=== PATIENT | male | born 1925 | race Caucasian/White ===

== ENCOUNTER 2016-10-20 17:37 | Emergency (ER) | payer MEDICARE ==
[2016-10-20] MEDS ORDERED: NS 0.9% 1000 ML* 1,000 ML IV ONE (18:05)
--- NOTE | 2016-10-20 18:28 | RAD ---
INDICATION: Altered mental status COMPARISON: Multiple previous brain CTs, most recently dated July 24, 2016 TECHNIQUE: Contiguous axial sections of the brain were obtained from the skull base to the vertex without contrast. FINDINGS: The ventricles, cisterns and sulci exhibit central greater than peripheral involutional changes similar in appearance to the most recent CT of the brain. There is mild to moderate periventricular and subcortical white matter hypoattenuation also similar to the previous CT examination and most consistent with chronic microvascular disease. Otherwise the jones-white matter differentiation is adequately maintained and there is no sulcal effacement. No significant focal abnormality or mass effect is present. There is no evidence for intracranial hemorrhage. Calcified atherosclerosis of the vertebral arteries and petrous carotid arteries are noted. No significant focal osseous abnormality is present. The visualized portion of the paranasal sinuses and mastoid air cells appear clear. IMPRESSION: Involutional changes and evidence of chronic microvascular disease similar in appearance to the July 24, 2016 CT examination without evidence of acute intracranial abnormality.
[2016-10-20 18:56] LABS: Hematocrit 42 % (42-52); Hemoglobin 14.1 g/dl (14.0-18.0); Mean Corpuscular HGB Conc 33 g/dl (31-36); Mean Corpuscular Hemoglobin 27 pg (27-31); Mean Corpuscular Volume 83 fL (80-94); Mean Platelet Volume 8 um3 (7.4-10.4); Red Blood Count 5.13 10^6/ul (4.0-5.4); Red Cell Distribution Width 15 % (10.5-15); White Blood Count 8.1 10^3/ul (3.5-10.8)
[2016-10-20 19:09] LABS: Anion Gap 7 mmol/L (2-11); Blood Urea Nitrogen 20 mg/dL (6-24); CO2 Carbon Dioxide 28 mmol/L (22-32); Chloride 101 mmol/L (101-111); Glucose 109 mg/dL (70-100); Potassium 3.9 mmol/L (3.5-5.0); Sodium 136 mmol/L (133-145); Troponin I 0.02 ng/mL (<0.04)
[2016-10-20 19:10] LABS: ALT 14 U/L (7-52); AST 21 U/L (13-39); Alkaline Phosphatase 64 U/L (34-104); Calcium 9.1 mg/dL (8.6-10.3); Creatine Kinase 52 U/L (10-223); EGFR African American 90.5 (>60); EGFR Non-African American 70.4 (>60); Globulin 2.9 g/dL (2-4); Total Protein 6.9 g/dL (6.4-8.9)
[2016-10-20 19:15] LABS: Alcohol < 10 mg/dL (<10)
--- NOTE | 2016-10-20 19:55 | RAD ---
INDICATION: Altered mental status COMPARISON: Chest x-ray dated July 15, 2016 TECHNIQUE: Single AP portable view of the chest was obtained. FINDINGS: Image quality is compromised due to the relative inferiority of a portable chest x-ray. Unchanged iatrogenic findings include left upper chest cardiac pacemaker with 2 leads overlying the heart and sternotomy wires. The heart and mediastinum exhibit normal size and contour. Again seen is coarse calcification overlying the arch of the aorta. The lungs are grossly clear. There is no evidence of a large pleural effusion. Visualized bones are normal for the patient's age. IMPRESSION: No radiographic evidence for acute cardiopulmonary abnormality on this portable chest x-ray.
[2016-10-20 21:53] LABS: Urine Bilirubin Negative (Negative); Urine Glucose Negative (Negative); Urine Nitrite Negative (Negative)
--- NOTE | 2016-10-20 22:02 | ED ---
I, Oh,Soohyun, scribed for Edil Rodriguez MD on 10/20/16 at 1931 . Complex/Multi-Sys Presentation - HPI Summary HPI Summary: LEVEL 5 CAVEAT secondary to Dementia. Most of the HPI is obtained from a female family member present at bedside. This 89 y/o male presents to ED for increased general weakness since this morning. Family member present at bedside states that pt is mobile at his baseline, but this morning he was not able to hold himself up from the bed and appeared more disoriented than his usual self. Pt reports n/v this AM but denies any diarrhea. Temperature of 100.1 F is noted at time of triage. PMH includes CABG, afib, TIA x2, and right eye blindness. - History Of Current Complaint Time Seen by Provider: 10/20/16 17:56 Hx Obtained From: Family/Bread Wrapper, Medical Records Hx From Patient Unobtainable Due To: Dementia Onset/Duration: Sudden Onset, Still Present Timing: Constant Severity Currently: Moderate Severity Initially: Moderate Associated Signs And Symptoms: Positive: Weakness - general, Nausea, Vomiting - Allergies/Home Medications Allergies/Adverse Reactions: Allergies Allergy/AdvReac Type Severity Reaction Status Date / Time Amoxicillin Allergy Intermediate Rash Verified 06/18/16 16:10 Clindamycin Allergy Intermediate Hives Verified 06/18/16 16:10 Ramipril [From Altace] AdvReac Mild Coughing Verified 06/18/16 16:10 PMH/Surg Hx/FS Hx/Imm Hx Cardiovascular History: Reports: Hx Coronary Artery Disease - CABG X3 1993, Hx Hypertension, Hx Pacemaker/ICD, Other Cardiovascular Problems/Disorders - open heart Sx, AFIB, aortic valve replacement Respiratory History: Reports: Hx Chronic Bronchitis, Hx Sleep Apnea - HX OF, NOT CURRENTLY History: Reports: Hx Benign Prostatic Hyperplasia, Other Problems/ Disorders - prostate Cancer Sensory History: Reports: Hx Cataracts, Hx Contacts or Glasses - glasses, Hx Legally Blind - Rt eye blindness, Hx Hearing Problem Denies: Hx Hearing Aid Opthamlomology History: Reports: Hx Cataracts, Hx Contacts or Glasses - glasses , Hx Legally Blind - Rt eye blindness Neurological History: Reports: Hx Dementia, Hx Transient Ischemic Attacks (TIA) - possible past dx, Other Neuro Impairments/Disorders - vertigo - Cancer History Cancer Type, Location and Year: prostate no treatment - Surgical History Surgery Procedure, Year, and Place: 1961 - nasal septoplasty. pacemaker insertion 1997 [facility] [place]. CABG x3 1993. 01/20 [facility] [place] AORTIC VAL[place] Hx Anesthesia Reactions: No - Family History Known Family History: Positive: Cardiac Disease - CVA - Social History Alcohol Use: Daily Alcohol Amount: 1 beer Hx Substance Use: No Substance Use Type: Reports: None Hx Tobacco Use: Yes Smoking Status (MU): Former Smoker Type: Cigarettes Length of Time of Smoking/Using Tobacco: 30 yrs Have You Smoked in the Last Year: No Review of Systems - ROS Summary Review of Systems Summary: LEVEL 5 CAVEAT secondary to Dementia Positive: Fever - Temperature of 100.1 F Positive: Vomiting, Nausea. Negative: Diarrhea Positive: Weakness - general Negative: Anxious, Depressed All Other Systems Reviewed And Are Negative: No Physical Exam - Summary Physical Exam Summary: VITAL SIGNS: Reviewed. GENERAL: Patient is a well developed and nourished male who is lying comfortable in the stretcher. Patient is not in any acute respiratory distress. HEAD AND FACE: No signs of trauma. No ecchymosis, hematomas or skull depressions. No sinus tenderness. EYES: PERRLA, EOMI x 2, No injected conjunctiva, no nystagmus. EARS: Hearing grossly intact. Ear canals and tympanic membranes are within normal limits. MOUTH: Oropharynx within normal limits. NECK: Supple, trachea is midline, no adenopathy, no JVD, no carotid bruit, no c- spine tenderness, neck with full ROM. CHEST: Symmetric, no tenderness at palpation LUNGS: Clear to auscultation bilaterally. No wheezing or crackles. CVS: Regular rate and rhythm, S1 and S2 present, no murmurs or gallops appreciated. ABDOMEN: Soft, non-tender. No signs of distention. No rebound no guarding, and no masses palpated. Bowel sounds are normal. EXTREMITIES: FROM in all major joints, no edema, no cyanosis or clubbing. NEURO: Alert and oriented x 2. No acute neurological deficits. Speech is normal and follows commands. SKIN: Dry and warm Triage Information Reviewed: Yes Vital Signs On Initial Exam: Initial Vitals Temp Pulse Resp BP Pulse Ox 100.1 F 70 20 105/54 92 10/20/16 17:55 10/20/16 17:55 10/20/16 17:55 10/20/16 17:55 10/20/16 17:55 Vital Signs Reviewed: Yes Diagnostics - Vital Signs Vital Signs Temp Pulse Resp BP Pulse Ox 10/20/16 18:00 70 20 92 10/20/16 17:56 70 13 95 10/20/16 17:55 100.1 F 70 20 105/54 92 - Laboratory Lab Results: Lab Results 10/20/16 10/20/16 10/20/16 Range/Units 18:30 18:30 18:30 WBC 8.1 (3.5-10.8) 10^3/ul RBC 5.13 (4.0-5.4) 10^6/ul Hgb 14.1 (14.0-18.0) g/dl Hct 42 (42-52) % MCV 83 (80-94) fL MCH 27 (27-31) pg MCHC 33 (31-36) g/dl RDW 15 (10.5-15) % Plt Count 162 (150-450) 10^3/ul MPV 8 (7.4-10.4) um3 Neut % (Auto) 92.1 H (38-83) % Lymph % (Auto) 1.1 L (25-47) % [place] % (Auto) 6.6 (1-9) % Eos % (Auto) 0 (0-6) % Baso % (Auto) 0.2 (0-2) % Absolute Neuts (auto) 7.5 (1.5-7.7) 10^3/ul Absolute Lymphs (auto) 0.1 L (1.0-4.8) 10^3/ul Absolute Monos (auto) 0.5 (0-0.8) 10^3/ul Absolute Eos (auto) 0 (0-0.6) 10^3/ul Absolute Basos (auto) 0 (0-0.2) 10^3/ul Absolute Nucleated RBC 0 10^3/ul Nucleated RBC % 0 Sodium 136 (133-145) mmol/L Potassium 3.9 (3.5-5.0) mmol/L Chloride 101 (101-111) mmol/L Carbon Dioxide 28 (22-32) mmol/L Anion Gap 7 (2-11) mmol/L BUN 20 (6-24) mg/dL Creatinine 1.00 (0.67-1.17) mg/dL Est GFR ( Amer) 90.5 (>60) Est GFR (Non-Af Amer) 70.4 (>60) BUN/Creatinine Ratio 20.0 (8-20) Glucose 109 H (70-100) mg/dL Lactic Acid 1.6 (0.5-2.0) mmol/L Calcium 9.1 (8.6-10.3) mg/dL Magnesium 2.0 (1.9-2.7) mg/dL Total Bilirubin 1.70 H (0.2-1.0) mg/dL AST 21 (13-39) U/L ALT 14 (7-52) U/L Alkaline Phosphatase 64 (34-104) U/L Ammonia (16-53) mol/L Total Creatine Kinase 52 (10-223) U/L Troponin I 0.02 (<0.04) ng/mL Total Protein 6.9 (6.4-8.9) g/dL Albumin 4.0 (3.2-5.2) g/dL Globulin 2.9 (2-4) g/dL Albumin/Globulin Ratio 1.4 (1-3) Serum Alcohol < 10 (<10) mg/dL 10/20/16 Range/Units 18:30 WBC (3.5-10.8) 10^3/ul RBC (4.0-5.4) 10^6/ul Hgb (14.0-18.0) g/dl Hct (42-52) % MCV (80-94) fL MCH (27-31) pg MCHC (31-36) g/dl RDW (10.5-15) % Plt Count (150-450) 10^3/ul MPV (7.4-10.4) um3 Neut % (Auto) (38-83) % Lymph % (Auto) (25-47) % [place] % (Auto) (1-9) % Eos % (Auto) (0-6) % Baso % (Auto) (0-2) % Absolute Neuts (auto) (1.5-7.7) 10^3/ul Absolute Lymphs (auto) (1.0-4.8) 10^3/ul Absolute Monos (auto) (0-0.8) 10^3/ul Absolute Eos (auto) (0-0.6) 10^3/ul Absolute Basos (auto) (0-0.2) 10^3/ul Absolute Nucleated RBC 10^3/ul Nucleated RBC % Sodium (133-145) mmol/L Potassium (3.5-5.0) mmol/L Chloride (101-111) mmol/L Carbon Dioxide (22-32) mmol/L Anion Gap (2-11) mmol/L BUN (6-24) mg/dL Creatinine (0.67-1.17) mg/dL Est GFR ( Amer) (>60) Est GFR (Non-Af Amer) (>60) BUN/Creatinine Ratio (8-20) Glucose (70-100) mg/dL Lactic Acid (0.5-2.0) mmol/L Calcium (8.6-10.3) mg/dL Magnesium (1.9-2.7) mg/dL Total Bilirubin (0.2-1.0) mg/dL AST (13-39) U/L ALT (7-52) U/L Alkaline Phosphatase (34-104) U/L Ammonia 33 (16-53) mol/L Total Creatine Kinase (10-223) U/L Troponin I (<0.04) ng/mL Total Protein (6.4-8.9) g/dL Albumin (3.2-5.2) g/dL Globulin (2-4) g/dL Albumin/Globulin Ratio (1-3) Serum Alcohol (<10) mg/dL Result Diagrams: 10/20/16 18:30 10/20/16 18:30 Lab Statement: Any lab studies that have been ordered have been reviewed, and results considered in the medical decision making process. - Radiology CXR Xray Interpretation: No Acute Changes Radiology Interpretation Completed By: Radiologist - CT Brain CT Interpretation: No Acute Changes - Involutional changes and evidence of chronic microvascular disease similar in appearance to the July 24, 2016 CT examination without evidence of acute intracranial abnormality. CT Interpretation Completed By: Radiologist Complex Multi-Symp Course/Dx Assessment/Plan: This 89 y/o male presents to ED for increased general weakness since this morning. Family member present at bedside states that pt is mobile at his baseline, but this morning he was not able to hold himself up from the bed and appeared more disoriented than his usual self. Patient has Hx of dementia but he was more confused than his usual. Labs are found wnl. EKG nsr w/o JENNIFER. Head CT impression shows no acute intracranial pathology. CXR show no acute pathology. Patient is ambulatory and all test wnl. Patient will be discharged home with f/u of PMD. I discussed all my findings and test results with the patient. Patient understands and agrees. Patient was instructed to return to the emergency room immediately if any of the symptoms return or worsens. Patient understands and agrees. Plan of care was discussed with the patient and patient understands and agrees with the plan of care. All questions were answered at patient satisfaction. There were no further complaints or concerns. Patient was instructed to follow up with primary care physician within 3 to 5 days. Patient is hemodynamically stable. Patient is alert and oriented x 3. No acute neurological deficits - Diagnoses Provider Diagnoses: Weakness, Vomiting Discharge - Discharge Plan Condition: Stable Disposition: HOME Patient Education Materials: Weakness (ED), Acute Nausea and Vomiting (ED) Referrals: Edil Proctor MD [Primary Care Provider] - 2 Days The documentation as recorded by the Anmol shrestha Soohyun accurately reflects the service I personally performed and the decisions made by me, Edil Rodriguez MD.
[2016-10-20 22:22] VITALS: BP 96/75
== END 2016-10-20 22:21 | disposition home or self-care (01) ==
LOC: ED 17:37
DX: R53.1 Weakness (principal); R11.10 Vomiting, unspecified; I25.10 Atherosclerotic heart disease of native coronary artery without angina pectoris; I10 Essential (primary) hypertension; R94.31 Abnormal electrocardiogram [ECG] [EKG]; Z95.1 Presence of aortocoronary bypass graft; Z88.1 Allergy status to other antibiotic agents; Z88.8 Allergy status to other drugs, medicaments and biological substances; Z95.0 Presence of cardiac pacemaker; Z95.2 Presence of prosthetic heart valve; F03.90 Unspecified dementia, unspecified severity, without behavioral disturbance, psychotic disturbance, mood disturbance, and anxiety; Z87.891 Personal history of nicotine dependence
CPT/HCPCS: 36415; 70450; 71010; 80053; 80320; 81003; 82140; 82550; 83605; 83735; 84484; 85025; 87040; 93005; 96360; 96361; 99283; 99285; G0480